=== PATIENT | female | born 1995 | race Two or more races ===

== ENCOUNTER 2024-01-16 04:26 | Emergency (ER) | payer BC, MEDICAID ==
[~2024-01-16] VITALS: Ht 177.8 cm; Wt 91.0 kg
[2024-01-16 04:41] VITALS: BP 110/53; PULSE 103; RESP 18; TEMP 98.2; O2SAT 100
== END 2024-01-16 08:37 | disposition left against medical advice (07) ==
LOC: ER 04:26
DX: R00.2 Palpitations (principal); Z53.21 Procedure and treatment not carried out due to patient leaving prior to being seen by health care provider
CPT/HCPCS: 93005